=== PATIENT | male | born 1935 | race African-American/Black ===

== ENCOUNTER 2017-03-17 06:39 | Emergency (ER) | payer MEDICARE ==
--- NOTE | 2017-03-17 08:06 | RAD ---
2 VIEWS CERVICAL SPINE: Date: 03/17/17 HISTORY: Left shoulder pain. History of dementia. FINDINGS: AP and lateral views of cervical spine obtained. There is visualization of C1 through C4. C5, C6, and C7 vertebrae are not visualized. I do not see evidence of acute fractures; however, this exam is sig nificantly limited due to patient's inability to cooperate. If there is concern for cervical spine pa thology, correlation with CT cervical spine is recommended. IMPRESSION: Suboptimal quality exam due to patient inability to cooperate. The patient is contracted and would no t move head. POS: [facility]
--- NOTE | 2017-03-17 08:10 | RAD ---
LEFT SHOULDER 3 VIEWS: Date: 03/17/17 PROVIDED CLINICAL HISTORY: Shoulder pain status post fall. FINDINGS: The patient is contracted, limiting ability to tolerate routine positioning. There is no definite pablo dence for fracture. The acromioclavicular relationship is not well assessed on the basis of this stud y. The glenohumeral relationship appears normal. Visualized left lung field appears clear. IMPRESSION: Limited study without definite evidence for fracture. If there is persistent clinical concern, conser vative management and follow-up imaging are advised. POS: [facility]
== END 2017-03-17 09:52 | disposition home or self-care (01) ==
LOC: ERS 06:39
DX: S40.012A Contusion of left shoulder, initial encounter (principal); I10 Essential (primary) hypertension; I25.10 Atherosclerotic heart disease of native coronary artery without angina pectoris; K21.9 Gastro-esophageal reflux disease without esophagitis; E78.5 Hyperlipidemia, unspecified; Z86.73 Personal history of transient ischemic attack (TIA), and cerebral infarction without residual deficits; Z79.899 Other long term (current) drug therapy; W06.XXXA Fall from bed, initial encounter
CPT/HCPCS: 72040